=== PATIENT | female | born 2005 | race Caucasian/White ===

== ENCOUNTER 2024-06-01 06:42 | Outpatient (REF) | payer BC, SELFPAY ==
--- NOTE | ~2024-06-01 | US_ITS ---
EXAMINATION: US PELVIS CLINICAL INFORMATION: Left pelvic pain for one week. LMP started today. COMPARISON: None available. TECHNIQUE: Transabdominal imaging was obtained. Patient declined transvaginal imaging. FINDINGS: UTERUS: The uterus is anteverted and measures 7.1 x 3.1 x 3.3 cm. The double wall endometrial thickness is 2 mm. The uterus is smooth in contour and has normal myometrial echogenicity. No visible fibroid. ADNEXA: Both ovaries are visualized. There is normal color flow to the adnexa. There is no ovarian torsion. There is no pelvic ascites or fluid collection. Right ovary measures 1.8 x 2 x 2.6 cm. Volume of 5 mL. Left ovary measures 2.3 x 1.8 x 2 cm. Volume of 4.3 mL. US/US pelvic complete IMPRESSION: Unremarkable pelvic ultrasound. Electronically signed by: Matt Herrera MD 06/01/2024 03:44 PM [facility] [place]
== END 2024-06-01 06:43 | disposition home or self-care (01) ==
LOC: HO.UMASIMG 06:42
PROVIDERS: Visit Provider Nurse Practitioner
DX: R10.2 Pelvic and perineal pain (principal)
CPT/HCPCS: 76856